=== PATIENT | female | born 1960 | race Caucasian/White ===

== ENCOUNTER → 2018-02-04 | Outpatient (CLI) | payer BC ==
[2018-02-04 15:50] VITALS: PULSE 82; RESP 16; TEMP 97.7; BMI 31.6
--- NOTE | 2018-02-04 16:28 | P.HPOB ---
History of Present Illness H&P Date: 02/04/18 Chief Complaint: The patient is here for her routine gynecologic exam. This is a 58-year-old with an LMP of 2007. She is status post vaginal hysterectomy for benign reasons. The patient has been noticing increased urinary frequency without dysuria. She has noticed this during the past month or so. She denies hematuria. She feels like she avoids smaller amounts. She denies any significant bulge from the vagina. Review of Systems She is lost 7 pounds over the last 2 years. She denies respiratory or cardiac problems. G.I.: occasional esophageal symptoms with certain foods. Past Medical History Past Medical History: GERD/Reflux Additional Past Medical History / Comment(s): Seasonal allergies. 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 She had the 3 vaginal deliveries and 1 spontaneous . Past Surgical History: Hysterectomy (Vaginal), Tubal Ligation Smoking Status: Never smoker Past Alcohol Use History: None Reported Past Drug Use History: None Reported Additional History: She's been since 2001 this is her 2nd marriage. 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 - Past Family History Mother Family Medical History: Myocardial Infarction ([place]) Medications and Allergies Home Medications Medication Instructions Recorded Confirmed Type buPROPion HCL [Wellbutrin SR] DAILY 02/04/18 History Allergies Allergy/AdvReac Type Severity Reaction Status Date / Time sulfamethoxazole Allergy Unknown Verified 02/04/18 16:22 [From Bactrim] trimethoprim [From Bactrim] Allergy Unknown Verified 02/04/18 16:22 Exam - Vital Signs Vital signs: Vital Signs Temp Pulse Resp 02/04/18 15:27 97.7 F 82 16 Intake and Output 02/04/18 02/04/18 02/04/18 06:59 14:59 22:59 Other: Weight 83.461 kg Height 5'4", BMI 31.6. This is a well-developed well-nourished white female who is alert and oriented times 3 in no acute distress. HEENT: Within normal limits. NECK: Supple without mass or thyromegaly. CHEST AND LUNGS: Clear to auscultation. HEART: Regular rate and rhythm. BREASTS: Are without mass or discharge. AXILLARY EXAM: Negative for adenopathy. BACK: Negative for CVA tenderness. ABDOMEN: Soft, nontender, without palpable masses. PELVIC EXAM: External genitalia appears normal with mild atrophy. Vagina appears normal mild atrophy. There is no evidence of prolapse. Bimanual examination is negative for mass or tenderness. There is mild urethral mobility with cough and Valsalva. There is no significant cystocele. No urinary leakage was demonstrated. RECTAL EXAM: Rectovaginal exam is negative for mass or tenderness and is negative for occult blood. EXTREMITIES: Nontender. IMPRESSION: 1. 58-year-old menopausal female with status post vaginal hysterectomy for benign reasons. 2. Urinary frequency times without any significant physical findings at this time. Possible urinary tract infection or incomplete emptying. PLAN: 1. Pap smears have been discontinued. 2. Self breast awareness was discussed. 3. Screening mammogram is due any slip was given to the patient for this. 4. Clean catch urinalysis and culture and sensitivity have been sent. 5. Osteoporosis prevention was discussed. 6. I have recommended that she try not to hold urine too long and too try to empty her bladder more completely with relaxation and adequate time to urinate. 7. She will return in one year and PRN.
== END | disposition home or self-care (01) ==
LOC: WWCWWP 15:20
PROVIDERS: ATTEND Obstetrics & Gynecology
DX: Z53.9 Procedure and treatment not carried out, unspecified reason (principal)

== ENCOUNTER → 2018-04-01 | Outpatient (CLI) | payer BC ==
--- NOTE | 2018-04-02 08:20 | MM ---
Reason for exam: screening (asymptomatic). Last mammogram was performed 2 years and 10 months ago. History: Patient is postmenopausal. Took hormonal contraceptives for 1 year 6 months beginning at age 20. Physical Findings: A clinical breast exam by your physician is recommended on an annual basis and results should be correlated with mammographic findings. MG 3D Screening Mammo W/Cad Bilateral CC and MLO view(s) were taken. Prior study comparison: June 14, 2015, bilateral MG screening mammo w CAD. November 13, 2013, [facility] DIGITAL RIGHT MAMMOGRAM w/CAD. The breast tissue is heterogeneously dense. This may lower the sensitivity of mammography. Stable benign calcifications. There is no discrete abnormality. No significant changes when compared with prior studies. ASSESSMENT: Benign, BI-RAD 2 RECOMMENDATION: Routine screening mammogram of both breasts in 1 year.
== END | disposition home or self-care (01) ==
LOC: RADMAMWWP 09:21
PROVIDERS: ATTEND Obstetrics & Gynecology
DX: Z12.31 Encounter for screening mammogram for malignant neoplasm of breast (principal)
CPT/HCPCS: 77063; 77067

== ENCOUNTER → 2019-12-09 | Outpatient (CLI) | payer BC ==
--- NOTE | 2019-12-10 08:01 | MM ---
Reason for exam: screening (asymptomatic). Last mammogram was performed 1 year and 8 months ago. History: Patient is postmenopausal. Took hormonal contraceptives for 1 year 6 months beginning at age 20. Physical Findings: A clinical breast exam by your physician is recommended on an annual basis and results should be correlated with mammographic findings. MG 3D Screening Mammo W/Cad Bilateral CC and MLO view(s) were taken. Prior study comparison: April 01, 2018, bilateral MG 3d screening mammo w/cad. June 14, 2015, bilateral MG screening mammo w CAD. The breast tissue is heterogeneously dense. This may lower the sensitivity of mammography. No suspicious abnormality on the left breast. Subtle right upper outer quadrant middle depth architectural distortion. ASSESSMENT: Incomplete: need additional imaging evaluation, BI-RAD 0 RECOMMENDATION: Special view mammogram of the right breast. If lesion persists on supplemental views, image directed ultrasound is recommended. [facility] will attempt to contact patient to return for supplemental views and ultrasound if indicated.
== END | disposition home or self-care (01) ==
LOC: RADMAMWWP 09:20
PROVIDERS: ATTEND Family Medicine
DX: Z12.31 Encounter for screening mammogram for malignant neoplasm of breast (principal)
CPT/HCPCS: 77063; 77067

== ENCOUNTER → 2019-12-09 | Outpatient (CLI) | payer BC ==
[2019-12-09 09:32] VITALS: BP 113/80; PULSE 75; RESP 18; TEMP 97.9
--- NOTE | 2019-12-09 10:21 | P.HPOB ---
History of Present Illness H&P Date: 12/09/19 Chief Complaint: The patient is here for her routine gynecologic exam and ma mmogram. This is a 59-year-old 013 with an LMP of 2007. The patient is status post vaginal hysterectomy for benign reasons. The patient continues to have some urinary issues where it feels like her bladder does not hold as much urine. She had previously had testing for infection and this did not show infection to be the cause. She is otherwise without complaints. Review of Systems The patient has lost 6 pounds over the last year. She denies respiratory, cardiac, or G.I. problems. : See the HPI. Past Medical History Past Medical History: GERD/Reflux Additional Past Medical History / Comment(s): Seasonal allergies. 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 She had the 3 vaginal deliveries and 1 spontaneous . History of Any Multi-Drug Resistant Organisms: None Reported Past Surgical History: Hysterectomy, Tubal Ligation Additional Past Surgical History / Comment(s): Vaginal hysterectomy in 2007. Past Psychological History: No Psychological Hx Reported Smoking Status: Never smoker Past Alcohol Use History: None Reported Past Drug Use History: None Reported Additional History: She has been since 2001 and this is her second marriage. 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 She spends much of her time caring for her who was in a farming accident in 2019. - Past Family History Mother Family Medical History: Myocardial Infarction ([place]) Father Additional Family Medical History / Comment(s): Cardiac arrhythmia. Paternal aunt had widespread cancer. Paternal grandparents both had lung cancer. Medications and Allergies Home Medications Medication Instructions Recorded Confirmed Type buPROPion HCL [Wellbutrin SR] 150 mg PO DAILY 02/04/18 12/09/19 History Azelastine HCl [Optivar 0.05% 1 drop BOTH EYES DAILY 12/09/19 12/09/19 History Ophth Soln] Triamcinolone Acetonide [Nasacort] 1 spray EA NOSTRIL DAILY 12/09/19 12/09/19 History Allergies Allergy/AdvReac Type Severity Reaction Status Date / Time sulfamethoxazole Allergy Unknown Verified 12/09/19 09:33 [From Bactrim] trimethoprim [From Bactrim] Allergy Unknown Verified 03/04/20 09:33 Exam Vital Signs Temp Pulse Resp BP Pulse Ox 12/09/19 09:28 97.9 F 75 18 113/80 98 Intake and Output 12/08/19 12/09/19 12/09/19 22:59 06:59 14:59 Other: Weight 80.739 kg Height 5 feet 5 inches, weight 178 pounds, BMI 29.6. This is a well-developed well-nourished white female who is alert and oriented times 3 in no acute distress. HEENT: Within normal limits. NECK: Supple without mass or thyromegaly. CHEST AND LUNGS: Clear to auscultation. HEART: Regular rate and rhythm. BREASTS: Are without mass or discharge. AXILLARY EXAM: Negative for adenopathy. BACK: Negative for CVA tenderness. ABDOMEN: Soft, nontender, without palpable masses. PELVIC EXAM: External genitalia appears normal with mild atrophy. Vagina appears normal of mild atrophy. There is no evidence of prolapse. Bimanual examination is negative for mass or tenderness. RECTAL EXAM: Rectovaginal exam is negative for mass or tenderness and is negative for occult blood. EXTREMITIES: Nontender. IMPRESSION: 1. 59-year-old menopausal female status post vaginal hysterectomy with normal gynecologic exam. 2. Small bladder capacity which causes some urinary frequency. This may be secondary to incomplete bladder emptying or may be from genitourinary atrophy. PLAN: 1. Pap smears have been discontinued. 2. Self breast awareness was discussed with the patient. 3. Screening mammogram will be done today. 4. We had a long discussion regarding trying to empty the bladder as completely as possible. We will have a trial of Premarin vaginal cream 1 g intravaginally twice weekly and she will apply a small amount near the urethral opening at those times. If she is having UTI type of symptoms we can repeat the urine testing for infection. The electronic prescription for the Premarin vaginal cream will be sent to [facility] pharmacy in [place]. 5. I have recommended screening colonoscopy since she has never had this done. She states she will discuss this with her PCP to have them help her to arrange this. 6.Osteoporosis prevention was discussed. I have stressed the importance of adequate calcium, vitamin D and regular exercise. Recommended amounts of calcium and vitamin D were also discussed. We will plan on doing a bone density testing in 1 year at age 60. 7. She was advised to return in one year for her annual well woman exam.
== END ==
LOC: WWCWWP 09:17
PROVIDERS: ATTEND Obstetrics & Gynecology
DX: Z53.9 Procedure and treatment not carried out, unspecified reason (principal)

== ENCOUNTER → 2019-12-21 | Outpatient (CLI) | payer BC | END | disposition home or self-care (01) | DX: R92.8 Other abnormal and inconclusive findings on diagnostic imaging of breast (principal) | CPT/HCPCS: 77061; 77065 ==

== ENCOUNTER → 2019-12-25 | Outpatient (CLI) | payer BC ==
[2019-12-25 11:38] VITALS: BP 115/77; PULSE 80; RESP 18; TEMP 98.1
--- NOTE | 2019-12-25 12:13 | P.GSHP ---
History of Present Illness H&P Date: 12/25/19 Chief Complaint: Right breast mammographic abnormality Magda is a 59 year old white female who complains of right lateral breast discomfort. It has only happened three times and only lasts for a moment. She had a bilateral mammogram performed on 3419. There was a right upper outer quadrant architectural distortion noted however on 12/21/2019 she had a compression view obtained which revealed a 2 mm area of architectural distortion persisting on a spot film. She had an ultrasound performed in the ultrasound did not reveal any specific lesion of concern. She is not complaining of any nipple discharge or changes. caffiene: intermittent pepsi smoke: none chocolate: weekly hormones: none Family history: paternal grandparents: cancer ? type paternal aunt: ? source Hormonal History: menarche: 13 1 miscarrage, breast fed: yes. age at first : 21 menopause: 50, partial hysterectomy for bleeding no cancer ? age BCP: sporadically 4 years hormones: none Surgical history: Partial hysterectomy Tonsillectomy Tubal ligation Medical History: allergies/ breast, trees, multiple allergens Social history: smoke: none alcohol: none drugs: none - Constitutional Constitutional: Denies chills, Denies fever - EENT Eyes: denies blurred vision, denies pain Ears: bilateral: decreased hearing, deny: tinnitus Ears, nose, mouth and throat: Denies headache, Denies sore throat - Breasts Breasts: bilateral: as per HPI - Cardiovascular Cardiovascular: Denies chest pain, Denies shortness of breath - Respiratory Respiratory: Denies cough, Denies 7 - Gastrointestinal Gastrointestinal: Denies abdominal pain, Denies diarrhea, Denies nausea, Denies vomiting - Genitourinary (Female) Genitourinary: Denies dysuria, Denies hematuria - Menstruation Menstruation: Reports post hysterectomy - Musculoskeletal Comment: arthritis - Integumentary Integumentary: Denies pruritus, Denies rash - Neurological Neurological: Denies numbness, Denies weakness - Psychiatric Psychiatric: Denies depression - Endocrine Endocrine: Denies fatigue, Denies weight change - Hematologic/Lymphatic Comment: none - Allergic/Immunologic Allergic/Immunologic: Reports as per HPI Past Medical History Past Medical History: GERD/Reflux Additional Past Medical History / Comment(s): Seasonal allergies. 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 She had the 3 vaginal deliveries and 1 spontaneous . History of Any Multi-Drug Resistant Organisms: None Reported Past Surgical History: Hysterectomy, Tubal Ligation Smoking Status: Never smoker Past Alcohol Use History: None Reported Past Drug Use History: None Reported - Past Family History Mother Family Medical History: Myocardial Infarction ([place]) Medications and Allergies Home Medications Medication Instructions Recorded Confirmed Type buPROPion HCL [Wellbutrin SR] 150 mg PO DAILY 02/04/18 12/25/19 History Azelastine HCl [Optivar 0.05% 1 drop BOTH EYES DAILY 12/09/19 12/25/19 History Ophth Soln] Estrogens, Conjugated Cream 1 gm VAGINAL DIRECTED #1 tube 12/09/19 12/25/19 Rx [Premarin Cream] Triamcinolone Acetonide [Nasacort] 1 spray EA NOSTRIL DAILY 12/09/19 12/25/19 History Allergies Allergy/AdvReac Type Severity Reaction Status Date / Time sulfamethoxazole Allergy Unknown Verified 12/25/19 11:39 [From Bactrim] trimethoprim [From Bactrim] Allergy Unknown Verified 12/25/19 11:39 Surgical - Exam Vital Signs Temp Pulse Resp BP Pulse Ox 98.1 F 80 18 115/77 97 12/25/19 11:25 12/25/19 11:25 12/25/19 11:25 12/25/19 11:25 12/25/19 11:25 BMI 29.1 - General well developed, well nourished, no distress - Eyes normal ocular movement - ENT no hearing loss, no congestion - Neck no masses, trachea midline - Respiratory normal respiratory effort, clear to auscultation - Cardiovascular Rhythm: regular Heart Sounds: normal: S1, S2 - Abdomen Abdomen: soft, non tender, no guarding, no rigid, no rebound - Integumentary normal turgor - Neurologic no disoriented, no combative - Musculoskeletal normal gait, normal posture - Psychiatric oriented to time, oriented to person, oriented to place, speech is normal, memory intact breast exam: BRA 34H Inspection: no nipple inversion palpation: Right breast: Multi-positional exam fibrocystic changes, no dominant masses or notches of concern Right axilla: No adenopathy of concern Left breast: Multi-positional exam no dominant masses or nodules of concern Left axilla: No adenopathy of concern Results mammogram results reviewed Assessment and Plan Assessment: Impression: 1. Architectural distortion right breast 2. Bilateral fibrocystic breast changes 3. Intermittent mastodynia Plan: 1. 3D stero biopsy of the right breast Risk and benefits of the procedures were discussed with the patient including bleeding infection or inability to see the lesion and reschedule the procedure. CC: Dr Pollard encounter 40 minutes, > 50% of time in planning and counselling Time with Patient: Greater than 30
== END | disposition home or self-care (01) ==
LOC: WWCWWP 11:15
PROVIDERS: ATTEND Surgery
DX: Z53.9 Procedure and treatment not carried out, unspecified reason (principal)

== ENCOUNTER → 2020-02-19 | Outpatient (CLI) | payer BC ==
[2020-02-19 13:30] VITALS: BP 99/67; PULSE 78; RESP 20; TEMP 98.4
--- NOTE | 2020-02-19 14:18 | P.PN ---
Subjective Progress Note Date: 02/19/20 Principal diagnosis: abnormal mammogram, right Magda is a 59 year old white female who complains of right lateral breast discomfort. It has only happened three times and only lasts for a moment. She had a bilateral mammogram performed on 3419. There was a right upper outer q uadrant architectural distortion noted however on 12/21/2019 she had a compression view obtained which revealed a 2 mm area of architectural distortion persisting on a spot film. She had an ultrasound performed in the ultrasound did not reveal any specific lesion of concern. She is not complaining of any nipple discharge or changes. caffiene: intermittent pepsi The patient had an attempted stereotactic core biopsy indicating [facility] on 02/11/2020. The patient however became lightheaded and passed out. The procedure was therefore canceled. smoke: none chocolate: weekly hormones: none Family history: paternal grandparents: cancer ? type paternal aunt: ? source Hormonal History: menarche: 13 1 misc[place]age, breast fed: yes. age at first : 21 menopause: 50, partial hysterectomy for bleeding no cancer ? age BCP: sporadically 4 years hormones: none Surgical history: Partial hysterectomy Tonsillectomy Tubal ligation Medical History: allergies/ breast, trees, multiple allergens Social history: smoke: none alcohol: none drugs: none - Constitutional Constitutional: Denies chills, Denies fever - EENT Eyes: denies blurred vision, denies pain Ears: bilateral: decreased hearing, deny: tinnitus Ears, nose, mouth and throat: Denies headache, Denies sore throat - Breasts Breasts: bilateral: as per HPI - Cardiovascular Cardiovascular: Denies chest pain, Denies shortness of breath - Respiratory Respiratory: Denies cough, Denies 7 - Gastrointestinal Gastrointestinal: Denies abdominal pain, Denies diarrhea, Denies nausea, Denies vomiting - Genitourinary (Female) Genitourinary: Denies dysuria, Denies hematuria - Menstruation Menstruation: Reports post hysterectomy - Musculoskeletal Comment: arthritis - Integumentary Integumentary: Denies pruritus, Denies rash - Neurological Neurological: Denies numbness, Denies weakness - Psychiatric Psychiatric: Denies depression - Endocrine Endocrine: Denies fatigue, Denies weight change - Hematologic/Lymphatic Comment: none - Allergic/Immunologic Allergic/Immunologic: Reports as per HPI Past Medical History Past Medical History: GERD/Reflux Additional Past Medical History / Comment(s): Seasonal allergies. 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 She had the 3 vaginal deliveries and 1 spontaneous . History of Any Multi-Drug Resistant Organisms: None Reported Past Surgical History: Hysterectomy, Tubal Ligation Smoking Status: Never smoker Past Alcohol Use History: None Reported Past Drug Use History: None Reported Objective - Vital Signs Vital signs: Vital Signs Temp 98.4 F 02/19/20 13:27 Pulse 78 02/19/20 13:27 Resp 20 02/19/20 13:27 BP 99/67 02/19/20 13:27 Pulse Ox 97 02/19/20 13:27 Intake & Output 02/18/20 02/19/20 02/19/20 18:59 06:59 18:59 Weight 81.647 kg - Exam BMI 30.9 - Constitutional General appearance: Present: cooperative - EENT Eyes: Present: EOMI ENT: Present: hearing grossly normal - Neck Neck: Present: normal ROM - Respiratory Respiratory: bilateral: CTA - Cardiovascular Rhythm: regular Heart sounds: normal: S1, S2 - Gastrointestinal General gastrointestinal: Present: normal bowel sounds, soft - Integumentary Integumentary: Present: normal turgor - Musculoskeletal Musculoskeletal: Present: gait normal - Psychiatric Psychiatric: Present: A&O x's 3, appropriate affect - Additional findings Additional findings: breast exam: BRA 34H inspection: no nipple inversion ptosis grade2 Palpation: Right breast: Multiple positional exam fibrocystic changes no dominant masses or nodules of concern Right axilla: No adenopathy of concern Left breast: Multi-positional exam no dominant masses or nodules of concern Left axilla: No adenopathy of concern Assessment and Plan Assessment: Impression: 1. Mammographic abnormality right breast 2. Fibrocystic breast changes 3. Patient with vagal episode when they attempted to do a 3-D stereo biopsy Plan: 1. Patient is given the option of it began attempting to do a 3-D stereo biopsy she does not want to try this again she feels like she would just pass out again 2. Needle local excisional biopsy in the operating room of this can be localized 3. Watchful waiting/patient is concerned about doing this as well I will review the patient's radiographs with radiology if they feel that they can do a localization and it is warranted and we will proceed with needle localization excisional biopsy in the operating room. Risks and benefits of the procedure discussed with the patient. These include but are not limited to bleeding, infection, reaction to the anesthetic. Additionally it is possible that the area would not be correctly localized with a needle was slipped over the neck at the exact area of concern. She understands this and wishes to proceed. Cc: Dr. Glass encounter 20 minutes, > 50% of time in planning and counselling Time with Patient: Less than 30
--- NOTE | 2020-03-11 11:40 | P.PN ---
Progress Note - Text Progress Note Date: 03/11/20 I have talked with the radiologist in reviewing Magda Reese's mammograms. There is concern that the area of distortion cannot be seen well on 2 views. They are therefore recommending that the patient have another attempt at a 3-D stereo biopsy, versus a secure flori being placed at [place] to localize the area prior to an attempted open resection. Alternatively the patient can wait for 6 months and have a repeat mammogram. I discussed all of these options with the patient. The patient has decided she will again try another 3-D biopsy. She is going to be given Valium 10 mg prior to the procedure. She will follow up with me after the biopsy. c: Quan
== END | disposition home or self-care (01) ==
LOC: WWCWWP 13:10
PROVIDERS: ATTEND Surgery
DX: Z53.9 Procedure and treatment not carried out, unspecified reason (principal)

== ENCOUNTER → 2020-05-05 | Outpatient (CLI) | payer BC ==
[2020-05-05 09:18] VITALS: BP 112/75; PULSE 89; RESP 18; TEMP 98.3
--- NOTE | 2020-05-05 10:10 | P.PN ---
Subjective Progress Note Date: 05/05/20 Principal diagnosis: atypia on core biopsy right breast Magda is a 59 year old white female who complains of right lateral breast discomfort. It has only happened three times and only lasts for a moment. She had a bilateral mammogram performed on 3419. There was a right upper outer quadrant architectural distortion noted however on 12/21/2019 she had a compression view obtained which revealed a 2 mm area of architectural distortion persisting on a spot film. She had an ultrasound performed in the ultrasound did not reveal any specific lesion of concern. She is not complaining of any nipple discharge or changes. She is not complaining of any pain in her breast at this time. The patient had an attempted right stereo biopsy 02-11-20 at [facility], however she passed out and the procedure was canceled. She had a repeat attempt and a right breast stereo biopsy was performed on 7919. Her pathology revealed atypical small tubular proliferation excision was recommended. caffiene: intermittent pepsi smoke: none chocolate: weekly hormones: none Family history: paternal grandparents: cancer ? type paternal aunt: ? source Hormonal History: menarche: 13 1 [place], breast fed: yes. age at first : 21 menopause: 50, partial hysterectomy for bleeding no cancer ? age BCP: sporadically 4 years hormones: none Surgical history: Partial hysterectomy Tonsillectomy Tubal ligation Medical History: allergies/ breast, trees, multiple allergens Social history: smoke: none alcohol: none drugs: none - Constitutional Constitutional: Denies chills, Denies fever - EENT Eyes: denies blurred vision, denies pain Ears: bilateral: decreased hearing, deny: tinnitus Ears, nose, mouth and throat: Denies headache, Denies sore throat - Breasts Breasts: bilateral: as per HPI - Cardiovascular Cardiovascular: Denies chest pain, Denies shortness of breath - Respiratory Respiratory: Denies cough, Denies 7 - Gastrointestinal Gastrointestinal: Denies abdominal pain, Denies diarrhea, Denies nausea, Denies vomiting - Genitourinary (Female) Genitourinary: Denies dysuria, Denies hematuria - Menstruation Menstruation: Reports post hysterectomy - Musculoskeletal Comment: arthritis - Integumentary Integumentary: Denies pruritus, Denies rash - Neurological Neurological: Denies numbness, Denies weakness - Psychiatric Psychiatric: Denies depression - Endocrine Endocrine: Denies fatigue, Denies weight change - Hematologic/Lymphatic Comment: none - Allergic/Immunologic Allergic/Immunologic: Reports as per HPI Objective - Vital Signs Vital signs: Vital Signs Temp 98.3 F 05/05/20 09:16 Pulse 89 05/05/20 09:16 Resp 18 05/05/20 09:16 BP 112/75 05/05/20 09:16 Pulse Ox 98 05/05/20 09:16 Intake & Output 05/04/20 05/05/20 05/05/20 18:59 06:59 18:59 Weight 79.379 kg - Exam BMI 29.1 - Constitutional General appearance: Present: average body habitus - EENT Eyes: Present: EOMI ENT: Present: hearing grossly normal - Neck Neck: Present: normal ROM - Respiratory Respiratory: bilateral: CTA - Cardiovascular Rhythm: regular Heart sounds: normal: S1, S2 - Integumentary Integumentary Comment(s): Biopsy site clean and dry Integumentary: Present: normal turgor - Musculoskeletal Musculoskeletal: Present: gait normal - Psychiatric Psychiatric: Present: A&O x's 3, appropriate affect, intact judgment & insight - Additional findings Additional findings: breast: BRA: 34H inspection: ptosis grade 2 bilateral palpation: right breast: Artery interpositional exam fibrocystic changes, no dominant masses or nodules of concern Right axilla: No adenopathy of concern Left breast: Multi-positional exam fibrocystic changes, no dominant masses or nodules of concern Left axilla: No adenopathy of concern Assessment and Plan Assessment: Impression: 1. Atypia on stereotactic core biopsy right breast Plan: 1. Needle localization excisional lumpectomy right breast possible onco-plastic tissue transfer CC: Dr. Glass Patient benefits of the procedure discussed with the patient. These include but are not limited to bleeding, infection, reaction to the anesthetic. There is always a risk that the needle was not in the exact location and that we would have to repeat the procedure. Additionally of concern is the fact that the patient has had a syncopal episode with attempt at stereo biopsy and this will be discussed with radiology prior to her localization. encounter 30 minutes, > 50% of time in planning and counselling
== END | disposition home or self-care (01) ==
LOC: WWCWWP 09:05
PROVIDERS: ATTEND Surgery
DX: Z53.9 Procedure and treatment not carried out, unspecified reason (principal)

== ENCOUNTER → 2020-07-14 | Outpatient (CLI) | payer BC ==
[2020-07-14 11:09] VITALS: BP 116/70; PULSE 85; RESP 16; TEMP 98.3
--- NOTE | 2020-07-14 11:27 | P.PN ---
Subjective Progress Note Date: 07/14/20 Principal diagnosis: atypia on core biopsy right breast Magda is a 60 year old white female who complains of right lateral breast discomfort. It has only happened three times and only lasts for a moment. She had a bilateral mammogram performed on 3419. There was a right upper outer quadrant architectural distortion noted; on 12/21/2019 she had a compression view obtained which revealed a 2 mm area of architectural distortion persisting on a spot film. She then had an ultrasound performed and the ultrasound did not reveal any specific lesion of concern. The patient had an attempted right stereo biopsy 02-11-20 at [facility], however she passed out and the procedure was canceled. She had a repeat attempt and a right breast stereo biopsy was performed on 7919. Her pathology revealed atypical small tubular proliferation excision was recommen ded. Patient at this time is not complaining of any pain lumps or masses in her breast. She is not complaining of any abnormal nipple discharge or skin changes. She is concerned about the needle localization portion of the procedure as she passed out when they attempted to do a stereo biopsy. caffiene: intermittent pepsi smoke: none chocolate: weekly hormones: none Family history: paternal grandparents: cancer ? type paternal aunt: ? source Hormonal History: menarche: 13 1 [place]age, breast fed: yes. age at first : 21 menopause: 50, partial hysterectomy for bleeding no cancer ? age BCP: sporadically 4 years hormones: none Surgical history: Partial hysterectomy Tonsillectomy Tubal ligation Medical History: allergies/ bactrim trees, multiple allergens Social history: smoke: none alcohol: none drugs: none - Constitutional Constitutional: Denies chills, Denies fever - EENT Eyes: denies blurred vision, denies pain Ears: bilateral: decreased hearing, deny: tinnitus Ears, nose, mouth and throat: Denies headache, Denies sore throat - Breasts Breasts: bilateral: as per HPI - Cardiovascular Cardiovascular: Denies chest pain, Denies shortness of breath - Respiratory Respiratory: Denies cough - Gastrointestinal Gastrointestinal: Denies abdominal pain, Denies diarrhea, Denies nausea, Denies vomiting - Genitourinary (Female) Genitourinary: Denies dysuria, Denies hematuria - Menstruation Menstruation: Reports post hysterectomy - Musculoskeletal Comment: arthritis - Integumentary Integumentary: Denies pruritus, Denies rash - Neurological Neurological: Denies numbness, Denies weakness - Psychiatric Psychiatric: Denies depression - Endocrine Endocrine: Denies fatigue, Denies weight change - Hematologic/Lymphatic Comment: none - Allergic/Immunologic Allergic/Immunologic: Reports as per HPI Objective - Exam BMI 28.5 - Constitutional General appearance: Present: average body habitus - EENT Eyes: Present: EOMI ENT: Present: hearing grossly normal - Respiratory Respiratory: bilateral: CTA - Cardiovascular Rhythm: regular Heart sounds: normal: S1, S2 - Gastrointestinal General gastrointestinal: Present: normal bowel sounds, soft - Integumentary Integumentary: Present: normal turgor - Musculoskeletal Musculoskeletal: Present: gait normal - Psychiatric Psychiatric: Present: A&O x's 3, appropriate affect, intact judgment & insight - Additional findings Additional findings: breast exam: BRA 34H inspection: grade 2 ptosis bilateral palpation: right breast: Multi-positional exam no dominant masses or nodules of concern fibrocystic changes Right axilla: No adenopathy of concern Left breast: Multi-positional exam no dominant masses or nodules of concern fibrocystic changes Left axilla: No adenopathy of concern Assessment and Plan Assessment: Impression: 1. right breast stero biopsy atypia Plan: 1. Needle localization excisional lumpectomy right breast We have discussed doing this via a crescent mastopexy incision and the patient does not want asymmetry from the other side therefore we are not going to do a m astopexy with the resection. CC: DR. Glass encounter 20 minutes, > 50% of time in planning and counselling
== END | disposition home or self-care (01) ==
LOC: WWCWWP 10:57
PROVIDERS: ATTEND Surgery
DX: Z53.9 Procedure and treatment not carried out, unspecified reason (principal)

== ENCOUNTER 2020-07-19 10:45 | Day surgery (SDC) | payer BC ==
[2020-07-15 10:36] VITALS: BMI 28.6
[~2020-07-19 10:45] MED LIST: DEXAMETHASONE SOD PHOSPHATE 10 MG/ML 1 ML VIAL IV ONE; HEPARIN SODIUM,PORCINE 5,000 UNIT/ML 1 ML VIAL SQ ONE; LIDOCAINE 1% (10MG/ML) FOR IV START INTRADERMA PRN; MIDAZOLAM 2 MG/2 ML VIAL IV PRN; Pre Op ABX Message 1 EACH MISC MISCELLANE ONE; fentaNYL (PF) 50 MCG/ML 2 ML AMP IV PRN
[2020-07-19] MEDS: LACTATED RINGERS 1,000 ML IV SCH ×2 (11:20→17:51)
[2020-07-19] MEDS ORDERED: MIDAZOLAM 2 MG/2 ML VIAL IVP ONE (11:30)
[2020-07-19 12:14] VITALS: RESP 16
[2020-07-19] MEDS ORDERED: LIDOCAINE 1% INJ 10MG/ML (20 ML MDV) SQ ONE ×3 (12:25→15:56)
[2020-07-19] MEDS: ONDANSETRON 4 MG/2 ML VIAL IVP ONE ×2 (12:50→17:11)
[2020-07-19] MEDS ORDERED: SCOPOLAMINE 1.5MG/72HR PATCH TRANSDERM ONE (12:50)
[2020-07-19] MEDS ORDERED: SUCCINYLCHOLINE CHLORIDE 100 MG/5 ML SYR IV ONE (14:45)
[2020-07-19] MEDS ORDERED: MIDAZOLAM 2 MG/2 ML VIAL ONE (14:45)
[2020-07-19] MEDS ORDERED: LIDOCAINE 1% INJ 10MG/ML (20 ML MDV) ONE (14:45)
[2020-07-19] MEDS ORDERED: fentaNYL (PF) 50 MCG/ML 2 ML AMP ONE (14:45)
[2020-07-19] MEDS ORDERED: PROPOFOL 10 MG/ML 20 ML VIAL IV ONE (14:45)
[2020-07-19] MEDS ORDERED: KETOROLAC 15 MG/ML 1 ML VIAL ONE (14:45)
--- NOTE | 2020-07-19 15:52 | P.OP ---
Date of Procedure: 07/19/20 Preoperative Diagnosis: atypia core biopsy right breast at 9 oclock Postoperative Diagnosis: same Anesthesia: VE Surgeon: Izabela Shabazz Estimated Blood Loss (ml): 5 IV fluids (ml): 300 Pathology: other (Breast tissue) Condition: stable Disposition: same day Indications for Procedure: Atypia on core biopsy right breast Operative Findings: Fibrofatty breast tissue Description of Procedure: Magda Is a 60-year-old white female who underwent stereotactic core biopsy of the right breast was noted to have an area of atypia. It was recommended she undergo needle localization and excisional biopsy. Following needle loca lization she was brought to the operating room. Following induction of anesthesia the right breast was prepped and draped in a sterile fashion. Incision was carried down to the shaft of the needle and surrounding tissue was excised. Excision was carried down to the pectoralis major muscle. After assured that hemostasis was attained the specimen was painted for orientation. Radiographically revealed that the area of concern had been removed the clip was in the specimen. Following this the wound was well irrigated. Surgicel in powder form was placed. Titanium clips were placed one medial and two superior. The deep tissues were closed using 3-0 Vicryl suture. The skin was closed using 4-0 Monocryl. 10 mL of 1% lidocaine was injected into the area. The patient tolerated the procedure in stable condition. All instrument and sponge counts were correct at the end of the case.
--- NOTE | 2020-07-19 15:54 | P.DS ---
Providers Attending physician: Izabela Shabazz Primary care physician: Juanito Glass Plan - Discharge Summary Discharge Rx Participant: No New Discharge Prescriptions: No Action buPROPion HCL [Wellbutrin SR] 150 mg PO DAILY Triamcinolone Acetonide [Nasacort] 1 spray EA NOSTRIL DAILY Azelastine HCl [Optivar 0.05% Ophth Soln] 1 drop BOTH EYES DAILY Loratadine [Claritin] 10 mg PO DAILY Multivitamin [Multivitamins Adult Gummies] 1 each PO DAILY L.acidoph,Paracasei, B.lactis [Probiotic] 1 each PO DAILY Discharge Medication List buPROPion HCL [Wellbutrin SR] 150 mg PO DAILY 02/04/18 [History] Azelastine HCl [Optivar 0.05% Ophth Soln] 1 drop BOTH EYES DAILY 12/09/19 [History] Triamcinolone Acetonide [Nasacort] 1 spray EA NOSTRIL DAILY 12/09/19 [History] Loratadine [Claritin] 10 mg PO DAILY 02/19/20 [History] L.acidoph,Paracasei, B.lactis [Probiotic] 1 each PO DAILY 07/15/20 [History] Multivitamin [Multivitamins Adult Gummies] 1 each PO DAILY 07/15/20 [History] Follow up Appointment(s)/Referral(s): Izabela Shabazz MD [STAFF PHYSICIAN] - 1 Week Activity/Diet/Wound Care/Special Instructions: do not drive for 24 hours may shower after 48 hours wear bra at all times Discharge Disposition: HOME SELF-CARE
[2020-07-19 16:15] VITALS: TEMP 98
[2020-07-19] MEDS: HYDROmorphone 0.5 MG/0.5 ML SYRINGE IVP PRN ×3 (16:20→16:47)
[2020-07-19 18:36] VITALS: BP 104/68; PULSE 88
--- NOTE | 2020-07-20 09:35 | MM ---
EXAMINATION TYPE: MG pre op needle loc RT, MG surgical specimen RT DATE OF EXAM: 07/19/2020 12:53 PM COMPARISON: NONE HISTORY: R92.8 ABN MAMMO Informed consent was obtained and all the patient's questions were answered. The clip in question was localized mammographically. The standard sterile technique was utilized, as well as appropriate local anesthesia with 1% Lidocaine. Localization needle followed by placement of a guidewire was performed under mammographic guidance. Verification images demonstrate appropriate deployment of the guidewire. The patient tolerated the procedure well and left the department in stable condition. Specimen radiograph demonstrates the clip in question to reside within the specimen. IMPRESSION: Successful needle localization and open biopsy left breast with pathology results pending . Pathology Results: Benign RIGHT BREAST, NEEDLE LOCALIZATION BIOPSY: Fibrocystic spectrum changes including duct cystic changes, stromal fibrosis, and usual type duct hyperplasia. Intraductal mineralizations are seen throughout the specimen. Recommendation Follow up mammogram of the right breast in 6 months. LORE
== END 2020-07-19 18:40 | disposition home or self-care (01) ==
LOC: OR 10:45
PROVIDERS: ATTEND Surgery
DX: N60.11 Diffuse cystic mastopathy of right breast (principal); N64.89 Other specified disorders of breast; N64.81 Ptosis of breast; N60.12 Diffuse cystic mastopathy of left breast; F32.9 Major depressive disorder, single episode, unspecified; Z78.0 Asymptomatic menopausal state; Z90.710 Acquired absence of both cervix and uterus; Z90.89 Acquired absence of other organs; Z98.51 Tubal ligation status; Z88.2 Allergy status to sulfonamides; Z91.09 Other allergy status, other than to drugs and biological substances; Z79.899 Other long term (current) drug therapy; Z96.642 Presence of left artificial hip joint; Z80.9 Family history of malignant neoplasm, unspecified
CPT/HCPCS: 19125; 19281; 88307; 76098; J2250; J1644; J1100; J2405; J2001; J3010; J1885; J0330; J2704; J1170

== ENCOUNTER → 2020-07-28 | Outpatient (CLI) | payer BC ==
[2020-07-28 11:42] VITALS: BP 114/78; PULSE 84; RESP 18; TEMP 98.1
--- NOTE | 2020-07-28 11:42 | P.PN ---
Progress Note - Text Progress Note Date: 07/28/20 Magda is a 60 year old white female status post right breast needle local excisional biopsy in [id number]. Pathology was benign fibrocystic changes. She is doing well postoperative. Physical examination: Incision: Clean and dry Lungs: Clear Heart: Regular rate and rhythm Impression: 1. Benign findings status post right breast needle localization and excisional biopsy 2. She will be due for a left breast mammogram in December 2020 Plan: 1. Repeat bilateral mammogram and physician exam in 6 months CC: Dr. Juanito Glass
== END | disposition home or self-care (01) ==
LOC: WWCWWP 11:24
PROVIDERS: ATTEND Surgery
DX: Z53.9 Procedure and treatment not carried out, unspecified reason (principal)

== ENCOUNTER → 2021-03-07 | Outpatient (CLI) | payer BC ==
--- NOTE | 2021-03-09 09:16 | MM ---
Reason for exam: screening (asymptomatic). Last mammogram was performed 1 year and 3 months ago. History: Patient is postmenopausal. Benign MG pre op needle loc RT of the right breast, July 19, 2020. Took hormonal contraceptives for 1 year 6 months beginning at age 20. Physical Findings: A clinical breast exam by your physician is recommended on an annual basis and results should be correlated with mammographic findings. MG 3D Screening Mammo W/Cad Bilateral CC and MLO view(s) were taken. Prior study comparison: December 21, 2019, right breast MG 3d work up w/cad RT. December 09, 2019, bilateral MG 3d screening mammo w/cad. The breast tissue is heterogeneously dense. This may lower the sensitivity of mammography. Finding: There are typically benign vascular calcifications. Previous mammotome biopsy in the right breast x 2. ASSESSMENT: Benign, BI-RAD 2 RECOMMENDATION: Routine screening mammogram of both breasts in 1 year.
== END | disposition home or self-care (01) ==
LOC: RADMAMWWP 15:33
PROVIDERS: ATTEND Surgery
DX: Z12.31 Encounter for screening mammogram for malignant neoplasm of breast (principal); Z78.0 Asymptomatic menopausal state
CPT/HCPCS: 77063; 77067

== ENCOUNTER → 2021-03-17 | Outpatient (CLI) | payer BC ==
[2021-03-17 10:01] VITALS: BP 112/74; PULSE 72; RESP 16; TEMP 98
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
== END ==
LOC: WWCWWP 09:42
PROVIDERS: ATTEND Surgery
DX: N60.11 Diffuse cystic mastopathy of right breast (principal); N60.12 Diffuse cystic mastopathy of left breast; N60.91 Unspecified benign mammary dysplasia of right breast; Z88.2 Allergy status to sulfonamides

== ENCOUNTER → 2022-09-17 | Outpatient (CLI) | payer BC ==
--- NOTE | 2022-09-18 08:38 | MM ---
Reason for Exam: Screening (asymptomatic). Last mammogram was performed 1 year(s) and 6 month(s) ago. Patient History: Menarche at age 12. First Full-Term at age 20. Hysterectomy at age 47. Postmenopausal. Patient has history of breast feeding. Hormonal Contraceptives for 1 year, 6 months, from age 20 until age 21. 07/19/2020, Benign Core Biopsy on the right side. Maternal cousin had breast cancer at or over age 50. Risk Values: Xuan 5 year model risk: 1.6%. NCI Lifetime model risk: 7.3%. Prior Study Comparison: 08/14/2000 Screening Mammogram, Unknown. 10/15/2008 Bilateral Screening Mammogram, [facility]. 01/03/2011 Bilateral Screening Mammogram, [facility]. 11/05/2012 Bilateral Screening Mammogram, [facility]. 11/10/2013 Bilateral Screening Mammogram, [facility]. 11/13/2013 Right Diagnostic Mammogram, [facility]. 06/14/2015 Bilateral Screening Mammogram, [facility]. 04/01/2018 Bilateral Screening Mammogram, [facility]. 12/09/2019 Bilateral Screening Mammogram, [facility]. 12/21/2019 Right Diagnostic Mammogram, [facility]. 12/21/2019 Right Diagnostic Ultrasound, [facility]. 03/07/2021 Bilateral Screening Mammogram, [facility]. Tissue Density: The breast tissue is heterogeneously dense. This may lower the sensitivity of mammography. Findings: Analyzed By CAD. There is no suspicious group of microcalcifications or new suspicious mass in either breast. Overall Assessment: Benign, BI-RAD 2 Management: Screening Mammogram of both breasts in 1 year. A clinical breast exam by your physician is recommended on an annual basis and results should be correlated with mammographic findings. Electronically signed and approved by: Yehuda Jimenez M.D. Radiologis
== END | disposition home or self-care (01) ==
LOC: RADMAMWWP 10:00
PROVIDERS: ATTEND Family Medicine
DX: Z12.31 Encounter for screening mammogram for malignant neoplasm of breast (principal); Z78.0 Asymptomatic menopausal state; Z80.3 Family history of malignant neoplasm of breast; Z98.890 Other specified postprocedural states
CPT/HCPCS: 77063; 77067

== ENCOUNTER → 2022-09-20 | Outpatient (CLI) | payer BC ==
[2022-09-20 10:36] VITALS: BP 111/77; PULSE 88; RESP 12; TEMP 98.4
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
== END ==
LOC: WWCWWP 10:25
PROVIDERS: ATTEND Surgery
DX: N60.11 Diffuse cystic mastopathy of right breast (principal); N60.12 Diffuse cystic mastopathy of left breast; Z88.2 Allergy status to sulfonamides

== ENCOUNTER → 2023-09-27 | Outpatient (CLI) | payer BC ==
--- NOTE | 2023-10-02 10:30 | MM ---
Reason for Exam: Screening (asymptomatic). Last screening mammogram was performed 12 month(s) ago. Patient History: Menarche at age 12. First Full-Term at age 20. Hysterectomy at age 47. Postmenopausal. Patient has history of breast feeding. Hormonal Contraceptives for 1 year, 6 months, from age 20 until age 21. 07/19/2020, Benign Core Biopsy on the right side. Maternal cousin had breast cancer at or over age 50. Risk Values: Xuan 5 year model risk: 1.7%. NCI Lifetime model risk: 7.1%. Prior Study Comparison: 12/21/2019 Right Diagnostic Mammogram, [facility]. 03/07/2021 Bilateral Screening Mammogram, [facility]. 09/17/2022 Bilateral MG 3D screening mammo w/cad, [facility]. Tissue Density: The breast tissue is heterogeneously dense. This may lower the sensitivity of mammography. Findings: Analyzed By CAD. Right breast surgical clips. Benign-appearing calcific patient's bilaterally. There is no suspicious group of microcalcifications or new suspicious mass. Overall Assessment: Benign, BI-RAD 2 Management: Screening Mammogram of both breasts in [address] [facility] will attempt to contact patient to return for supplemental views and ultrasound if indicated. Patient should continue monthly self-breast exams. A clinical breast exam by your physician is recommended on an annual basis. This exam should not preclude additional follow-up of suspicious palpable abnormalities. Note on Xuan scores and lifetime risk: 1. A Xuan score greater than 3% is considered moderate risk. If this is the case, consider specialist referral to assess eligibility for a risk reducing agent. 2. If overall lifetime risk for the development of breast cancer is 20% or higher, the patient may qualify for future screening with alternating mammogram and breast MRI. Electronically signed and approved by: Roldan Hernandez DO
== END | disposition home or self-care (01) ==
LOC: RADMAMWWP 10:13
PROVIDERS: ATTEND Surgery
DX: Z12.31 Encounter for screening mammogram for malignant neoplasm of breast (principal); Z80.3 Family history of malignant neoplasm of breast; Z78.0 Asymptomatic menopausal state
CPT/HCPCS: 77063; 77067

== ENCOUNTER → 2023-10-11 | Outpatient (CLI) | payer BC ==
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
[2023-10-11 13:58] VITALS: BP 119/83; PULSE 92; RESP 17; TEMP 97.8
== END ==
LOC: WWCWWP 12:42
PROVIDERS: ATTEND Surgery
DX: Z12.31 Encounter for screening mammogram for malignant neoplasm of breast (principal); N60.11 Diffuse cystic mastopathy of right breast; N60.12 Diffuse cystic mastopathy of left breast; Z90.711 Acquired absence of uterus with remaining cervical stump; Z98.890 Other specified postprocedural states; Z91.048 Other nonmedicinal substance allergy status; Z88.2 Allergy status to sulfonamides

== ENCOUNTER → 2024-09-22 | Outpatient (CLI) | payer BC ==
[2024-09-22 10:54] VITALS: BP 126/87; PULSE 76; RESP 16; TEMP 98.1
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
== END ==
LOC: WWCWWP 10:33
PROVIDERS: ATTEND Obstetrics & Gynecology
DX: Z01.419 Encounter for gynecological examination (general) (routine) without abnormal findings (principal); N39.3 Stress incontinence (female) (male); Z78.0 Asymptomatic menopausal state; Z90.710 Acquired absence of both cervix and uterus; Z88.2 Allergy status to sulfonamides; Z88.1 Allergy status to other antibiotic agents

== ENCOUNTER → 2025-04-20 | Outpatient (CLI) | payer MEDICARE ==
--- NOTE | 2025-04-20 12:04 | MM ---
Reason for Exam: Screening (asymptomatic). Last mammogram was performed 1 year(s) and 7 month(s) ago. Patient History: Menarche at age 12. First Full-Term at age 20. Hysterectomy at age 47. Postmenopausal. Patient has history of breast feeding. Hormonal Contraceptives for 1 year, 6 months, from age 20 until age 21. 07/19/2020, Benign Core Biopsy on the right side. Maternal cousin had breast cancer at or over age 50. Risk Values: Xuan 5 year model risk: 1.8%. NCI Lifetime model risk: 6.6%. Prior Study Comparison: 03/07/2021 Bilateral Screening Mammogram, [facility]. 09/17/2022 Bilateral MG 3D screening mammo w/cad, [facility]. 09/27/2023 Bilateral MG 3D screening mammo w/cad, [facility]. Tissue Density: The breasts are heterogeneously dense, which may obscure small masses. Findings: Analyzed By CAD. There is no suspicious group of microcalcifications or new suspicious mass in either breast. Overall Assessment: Benign, BI-RAD 2 Management: Screening Mammogram of both breasts in 1 year. . Patient should continue monthly self-breast exams. A clinical breast exam by your physician is recommended on an annual basis. This exam should not preclude additional follow-up of suspicious palpable abnormalities. Note on Xuan scores and lifetime risk: 1. A Xuan score greater than 3% is considered moderate risk. If this is the case, consider specialist referral to assess eligibility for a risk reducing agent. 2. If overall lifetime risk for the development of breast cancer is 20% or higher, the patient may qualify for future screening with alternating mammogram and breast MRI. [facility], , 04/20/2025 11:58 AM. Electronically signed and approved by: Yehuda Jimenez M.D. Radiologis
== END | disposition home or self-care (01) ==
LOC: RADMAMWWP 10:48
PROVIDERS: ATTEND Obstetrics & Gynecology
DX: Z12.31 Encounter for screening mammogram for malignant neoplasm of breast (principal); R92.333 Mammographic heterogeneous density, bilateral breasts; Z92.0 Personal history of contraception; Z78.0 Asymptomatic menopausal state; Z80.3 Family history of malignant neoplasm of breast
CPT/HCPCS: 77063; 77067